=== PATIENT | male | born 1985 | race Hispanic/Latino ===

== ENCOUNTER → 2025-04-13 08:05 | Outpatient (CLI) | payer SELFPAY ==
[2025-04-13 09:51] LABS: Free T3, Triiodothyronine Free 3.66 pg/mL (2.77-5.27); Free T4, Direct Thyroxine 1.27 ng/dL (0.78-2.19)
[2025-04-13 10:04] LABS: Thyroid Stimulating Hormone 2.28 uIU/mL (0.47-4.68)
== END ==
LOC: LAB 08:08
PROVIDERS: Referring Provider Chiropractor; Visit Provider Chiropractor
DX: E03.9 Hypothyroidism, unspecified (principal)
CPT/HCPCS: 36415; 84439; 84443; 84481